=== PATIENT | male | born 1960 | race Caucasian/White ===

== ENCOUNTER 2022-10-12 12:10 | Emergency (ER) | payer OTHER ==
[~2022-10-12] VITALS: Ht 175.3 cm; Wt 88.9 kg
== END 2022-10-12 14:38 | disposition home or self-care (01) ==
LOC: ER 12:10
DX: S61.011A Laceration without foreign body of right thumb without damage to nail, initial encounter (principal); W27.8XXA Contact with other nonpowered hand tool, initial encounter; Z23 Encounter for immunization; Z88.0 Allergy status to penicillin; Z87.891 Personal history of nicotine dependence
CPT/HCPCS: 90714